=== PATIENT | female | born 1955 | race Caucasian/White ===

== ENCOUNTER 2022-01-28 09:34 | Outpatient (CLI) | payer MEDICARE, BC, SELFPAY | END 2022-01-28 09:35 | disposition home or self-care (01) | LOC: LKVREF 02-02 13:34 | PROVIDERS: PCP Family Medicine; Visit Provider Nurse Practitioner Family | DX: R35.89 Other polyuria (principal); N30.90 Cystitis, unspecified without hematuria | CPT/HCPCS: 87086; 87186 ==

== ENCOUNTER 2022-04-20 09:18 | Outpatient (CLI) | payer MEDICARE, BC, SELFPAY ==
[2022-04-20 12:37] LABS: Chloride* 105 mmol/L (96-114); Sodium* 138 mmol/L (135-149)
[2022-04-20 12:38] LABS: Potassium* 4.5 mmol/L (3.6-5.1)
[2022-04-20 12:40] LABS: Carbon Dioxide* 26 mmol/L (20-32); Creatinine* 0.8 mg/dL (0.5-1.5); Estimated Glomerular Filt Rate 81 ml/min
[2022-04-20 12:41] LABS: Blood Urea Nitrogen* 13 mg/dL (7-30); Calcium* 9.5 mg/dL (8.4-10.6); Glucose* 82 mg/dL (60-115)
== END 2022-04-20 09:19 | disposition home or self-care (01) ==
LOC: LONREF 09:21
PROVIDERS: PCP Family Medicine; Visit Provider Family Medicine
DX: Z01.818 Encounter for other preprocedural examination (principal); E78.5 Hyperlipidemia, unspecified; E03.9 Hypothyroidism, unspecified; M85.80 Other specified disorders of bone density and structure, unspecified site; M17.12 Unilateral primary osteoarthritis, left knee; R30.0 Dysuria
CPT/HCPCS: 80048; 87086; 87186

== ENCOUNTER 2022-05-23 12:27 | Outpatient (CLI) | payer MEDICARE, BC, SELFPAY | END 2022-05-23 12:28 | disposition home or self-care (01) | LOC: LKVREF 05-24 15:10 | PROVIDERS: PCP Family Medicine; Visit Provider Nurse Practitioner Family | DX: R30.0 Dysuria (principal); N30.01 Acute cystitis with hematuria | CPT/HCPCS: 87086; 87186 ==

== ENCOUNTER 2022-12-07 12:56 | Outpatient (CLI) | payer MEDICARE, BC, SELFPAY ==
--- NOTE | 2022-12-07 13:20 | CRLHL7_ITS ---
For Patients: As a result of the Century Cures Act, medical imaging exams and procedure reports are released immediately into your electronic medical record. You may view this report before your referring provider. If you have questions, please contact your health care provider. BILATERAL SCREENING MAMMOGRAM WITH COMPUTER-AIDED DETECTION AND TOMOSYNTHESIS TECHNIQUE: CC, MLO and Implant displaced views were obtained. These mammographic images have been obtained using full-field digital technique. These mammographic images were interpreted with the benefit of computer-aided detection. Breast Tomosynthesis was used in this interpretation. COMPARISON FILM: 10/17/21, 08/09/20, 03/26/19. FINDINGS: The breasts are extremely dense, which lowers the sensitivity of mammography IMPRESSION: There is no radiographic evidence for malignancy. ASSESSMENT: BI-RADS Category 2: Benign RECOMMENDATION: Routine screening mammogram in 1 year. A lay language report of this examination will be provided to the patient. Manish Hummel M.D. Diagnostic Radiologist [email or web address] FRANCO/[email or web address] / be/Dictated by: Manish Hummel MD @ 12/10/2022 8:35:00 AM (Electronically Signed)
== END 2022-12-07 12:57 | disposition home or self-care (01) ==
PROVIDERS: PCP Family Medicine; Visit Provider Family Medicine
DX: Z12.31 Encounter for screening mammogram for malignant neoplasm of breast (principal); R92.2 Inconclusive mammogram
CPT/HCPCS: 77063; 77067

== ENCOUNTER 2022-12-14 14:49 | Outpatient (CLI) | payer MEDICARE, BC, SELFPAY | END 2022-12-14 14:50 | disposition home or self-care (01) | LOC: NFLDREF 12-16 09:23 | PROVIDERS: PCP Family Medicine; Referring Provider Family Medicine; Visit Provider Nurse Practitioner Family | DX: N39.0 Urinary tract infection, site not specified (principal) | CPT/HCPCS: 87086; 87186 ==

== ENCOUNTER 2023-10-01 09:49 | Outpatient (CLI) | payer MEDICARE, BC, SELFPAY ==
--- OUTSIDE RECORDS SUMMARY | 2023-10-01 09:54 | XMS_ITS | Clinical Summary ---
Author Organization [facility] Address [address], [place] [address] Care Team Providers Care Mobile Developer Name Role Phone Yecenia Calvert Primary Care Provider [phone] Source Comments You are receiving this document as you are listed as the primary care provider,follow-up provider, or the patient has been referred to you for consultation.This is in compliance with the Medicare and[facility] EHR Incentive Program,which states Providers who transition their patient to another setting of careor provider of care or refers their patient to another provider of care shouldprovide summary care record for each transition of care or referral. [employer] Allergies No known active allergies Medications Medication Sig Dispensed Refills Start Date End Date Status levothyroxine (AKA SYNTHROID) 25 MCG tablet Take 25 mcg by mouth daily (every 24 hours). 09/11/2015 Active Immunizations Name Administration Dates Next Due Td 10/31/1999 Varicella 06/17/1998(Deferred: Immune by Jesus corley) Social History Tobacco Use Types Packs/Day Years Used Date Smoking Tobacco: Never Sex and Gender Information Value Date Recorded Sex Assigned at Not on file Gender Identity Not on file Sexual Orientation Not on file Last Filed Vital Signs Vital Sign Reading Time Taken Comments Blood Pressure 128/64 09/11/2015 8:42 AM CDT Pulse 70 09/11/2015 8:42 AM CDT Temperature 36.4 ??C (97.5 ??F) 09/11/2015 8:42 AM CD T Respiratory Rate 16 09/11/2015 8:42 AM CDT Oxygen Saturation 100% 09/11/2015 8:42 AM CDT Inhaled Oxygen Concentration - - Weight - - Height - - Body Mass Index - - Plan of Treatment Health Maintenance Due Date Last Done Comments Colon Cancer Screening Plan Due 1954 Hep C Screening (Preventive Services) 1955 Cholesterol 1999 DTaP/Tdap/Td (1 - Tdap) 11/01/1999 10/31/1999 Mammogram 03/05/2001 03/05/2000, 02/05, 08/26/1998, Additional history exists Adult Preventive Visit 10/09/2002 2, 10/17/2000, 10/31/1999, Additional history exists Zoster/Shingles (1 of 2) 2004 Pneumococcal 65+ Yrs (1 - PCV) 2019 COVID-19 Vaccine (1 - season) 2023 Influenza (Season Ended) 2024 HepA Aged Out No longer eligi ble based on patient's age to complete this topic HepB Aged Out No longer eligi ble based on patient's age to complete this topic Hib Aged Out No longer eligi ble based on patient's age to complete this topic IPV (Polio) Aged Out No longer eligi ble based on patient's age to complete this topic MCV4 Aged Out No longer eligi ble based on patient's age to complete this topic Procedures Procedure Name Priority Date/Time Associated Diagnosis Comments BREAST IMAGING 03/05/2000 from Last 3 Months or Most Recently Relevant to Health Maintenance Results * BREAST IMAGING (03/05/2000) Anatomical Region Laterality Modality Breast Other Narrative Transcriptions Kodak Turner - 03/05/2000 12:00 AM CSTCLINICAL DATA: Screen INTERPRETATION: BILATERAL MAMMOGRAM 03/05/2000: Exam is compared to 08/26/98. Bilateral breast implants are again noted. Dense breast parenchyma with benign appearing calcifications are again noted. IMPRESSION: There is no evidence of malignancy. ACR BIRADS CATEGORY 1 - NEGATIVE MAMMOGRAM Kodak Turner MD cc: Radiology Sheela Caraballo MD Sheela Caraballo MD RAD_BI from Last 3 Months or Most Recently Relevant to Health Maintenance Care Teams Mobile Developer Relationship Specialty Start Date End Date Yecenia Calvert [address] [place] [address] PCP - General 08/14/01
--- OUTSIDE RECORDS SUMMARY | 2023-10-01 09:54 | XMS_ITS | Clinical Summary ---
Author Organization [employer] [facility] Address [place], [place] [address] Care Team Providers Care Electronic Instrument Trades Worker Name Role Phone Jared Villafana MD Primary Care Provider [phone] Allergies No known active allergies Medications Medication Sig Dispensed Refills Start Date End Date Status estradioL (ESTRACE) 0.01% (0.1 mg/g) vaginal cream 01/14/2023 Active levothyroxine (SYNTHROID) 88 mcg tablet 02/25/2023 Active simvastatin (ZOCOR) 20 mg tablet 01/04/2023 Active Social History Tobacco Use Types Packs/Day Years Used Date Smoking Tobacco: Never Assessed Sex and Gender Information Value Date Recorded Sex Assigned at Not on file Gender Identity Not on file Sexual Orientation Not on file Plan of Treatment Health Maintenance Due Date Last Done Comments Tdap 1965 Depression screening for age 12+ 1966 BMI (ht and wt on same day) for age 18+ 1972 Hepatitis C screening for ag e 18-79 1972 Tetanus booster 1974 Colonoscopy through age 75 1999 Lipids for age 45-75 1999 Mammogram for age 45-75 1999 Zoster (shingles) series for age 50+ (1 of 2) 2004 DEXA/DXA scan for age 65+ 2019 Medicare Wellness for age 65+ 2019 Pneumococcal series for age 65+ (1 of 1 - PCV) 2019 COVID-19 vaccine series (6 - 2022-24 season) 2023 01/11/2023, 12/21/2021, 02/15/2021, Additional history exists Influenza for age 65+ 01/05/2024 Care Teams Electronic Instrument Trades Worker Relationship Specialty Start Date End Date Jared Villafana MD PCP - General Family Practice 11/22/21
--- OUTSIDE RECORDS SUMMARY | 2023-10-01 09:55 | XMS_ITS | Encounter Summary ---
Author Organization [facility] Address [address] [place] [address] Care Team Providers Care Leak Operator Paraffin Plant Name Role Phone Yecenia Calvert Primary Care Provider [phone] Encounter Details Date Type Department Care Team (Latest Contact Info) Description 08/16/1998 Orders Only Destinee Kuhn Social History Tobacco Use Types Packs/Day Years Used Date Smoking Tobacco: Never Assessed Sex and Gender Information Value Date Recorded Sex Assigned at Not on file Gender Identity Not on file Sexual Orientation Not on file documented as of this encounter Plan of Treatment Not on file documented as of this encounter Visit Diagnoses Not on filedocumented in this encounter Care Teams Leak Operator Paraffin Plant Relationship Specialty Start Date End Date Yecenia Calvert [address] [place] [address] PCP - General 08/14/01 documented as of this encounter
== END 2023-10-01 09:50 | disposition home or self-care (01) ==
PROVIDERS: PCP Family Medicine; Visit Provider Family Medicine
DX: E78.00 Pure hypercholesterolemia, unspecified (principal); Z13.1 Encounter for screening for diabetes mellitus; E03.9 Hypothyroidism, unspecified
CPT/HCPCS: 80048; 80061; 84443

== ENCOUNTER 2023-12-17 12:39 | Outpatient (CLI) | payer MEDICARE, BC, SELFPAY ==
--- OUTSIDE RECORDS SUMMARY | 2023-12-17 12:42 | XMS_ITS | Clinical Summary ---
Author Organization [employer] [facility] Address [place], [place] [address] Care Team Providers Care Assembler Camper Name Role Phone Jared Villafana MD Primary Care Provider [phone] Allergies No known active allergies Medications Medication [...] Influenza for age 65+ 01/05/2024 Care Teams Assembler Camper Relationship Specialty Start Date End Date Jared Villafana MD PCP - General Family Practice 11/22/21
--- OUTSIDE RECORDS SUMMARY | 2023-12-17 12:42 | XMS_ITS | Continuity of Care Document ---
Author Organization [place] [facility] Address [address] [place] [address] [address] [place] [address] Care Team Providers Care Urogynaecologist Name Role Phone BIANKA EID Primary Care Provider Assessment No assessment recorded. Plan of Treatment Reminders Order Date Submit Date Provider Last Modified By Organization Details Last Modified Time Details Appointments None record ed. Lab None record ed. Referral None record ed. Procedures None record ed. Surgeries None record ed. Imaging None record ed. Medication Orders None record ed. Patient TargetsNo targets recorded. Patient Instructions Encounter Date Encounter Id Patient Instructions Last Modified By Organization Details Last Modified Time 10/22/2023 [id number] Recurrent UTIs: -Continue use of vaginal estrogen cream in prevention of UTIs. Apply fingerful amount to entry part of vagina two to three times per week at night. Recommend continuing indefinitely. -Continue cranberry supplement and probiotic. Discussed D-mannose. -Adequate fluids. -Consider anatomic evaluation and cystoscopy if recurrent UTIs remain an issue with conservative management. Follow up in one year, sooner if issues [email or web address] Not available 10/22/2023 11:10:13 Reason for Referral None Reported. Procedures Surgical History Date Name Laterality Status Provider Name and Address Organization Details Recorded Time 10/22/19 24 COMPLEX VISIT completed BRISA SPEARS [address] [facility],[address], [place], [address], [facility] 10/20/2023 21:51:12 09/14/19 15 Diagnostic colonoscopy completed Not Available Health Note 09/08/2022 12:29:31 Imaging Results None recorded. Procedure Notes None recorded. Medical Equipment None Reported. Allergies No known drug allergies Medications Name Sig Start Date Stop Date Status Note LastModified by Organization Details LastModified Time celecoxib 200 mg capsule 09/12 completed HN: Patient reports no longer taking Not Available Not Available Not Available prednisone 10 mg tablet TAKE 3 TABS DAILY X3 DAYS,2 TABS DAILY X3 DAYS,1 TAB DAILY 10/21 completed Not Available Not Available Not Available ciprofloxa brenda 500 mg tablet TAKE 1 TABLET BY MOUTH TWICE A DAY FOR 5 DAYS 10/21 completed Not Available Not Available Not Available sulfametho xazole 800 mg-trimeth oprim 160 mg tablet 09/12 completed HN: Patient reports no longer taking Not Available Not Available Not Available meloxicam 7.5 mg tablet 09/12 completed HN: Patient reports no longer taking Not Available Not Available Not Available levothyrox ine 88 mcg tablet active Not Available Not Available Not Available simvastati n 20 mg tablet active Not Available Not Available Not Available estradiol 0.01% (0.1 mg/gram) vaginal cream Apply pea size amount (0.5g) to the inside of the vagina three times per week at night active Not Available Not Available No t Available methylpred nisolone 4 mg tablets in a dose pack 09/12 completed HN: Patient reports no longer taking Not Available Not Available Not Available amoxicilli n 875 mg-potassi um clavulanat e 125 mg tablet TAKE 1 TABLET BY MOUTH EVERY 12 HOURS FOR 5 DAYS 10/21 completed Not Available Not Available Not Available oxycodone 5 mg tablet 09/12 completed HN: Patient reports no longer taking Not Available Not Available Not Available hydroxyzin e pamoate 25 mg capsule 09/12 completed HN: Patient reports no longer taking Not Available Not Available Not Available nitrofuran toin monohydrat e/macrocry stals 100 mg capsule 09/12 completed HN: Patient reports no longer taking Not Available Not Available Not Available Vitals Date Recorded Body weight Provider Name an d Address Organization Details Last Updated DateTime 10/22/2023 30688.93 g Susie Isidro [place] [facility] 10/22/2023 10:34:24 Social History Question Answer Notes LastModified by Organizat ion Details LastModified Time Tobacco Smoking Status Never Smoker Not Available Health Note 09/08/2022 12:29:31 What Is Your Level Of Alcohol Consumption? Moderate 6-7 Drinks Per Week. Information not available 10/22/2023 What Is Your Level Of Caffeine Consumption? Moderate 2-3 Cups Daily. Information not available 10/22/2023 How Much Tobacco Do You Chew? None [email or web address] Information not available 09/08/2022 Are You Currently Employed? No Information not available 10/22/2023 Do You Or Have You Ever Used E-cigarettes Or Vape? Never Used Electronic Cigarettes [email or web address] Information not available 09/08/2022 Ethnicity Not /Latin o Information not available 10/22/2023 Preferred Language Azeri Information not available 10/22/2023 Number Of Pregnancies 3 [email or web address] Information not available 09/08/2022 Number Of Vaginal Deliveries 3 [email or web address] Information not available 09/08/2022 Number Of Caesarean Sections 0 [email or web address] Information not available 09/08/2022 Could You Be ? No [email or web address] Information not available 09/08/2022 What Was The Date Of Your Most Recent Tobacco Screening? 10/22/2023 Information not available 10/22/2023 Have You Ever Been Counseled For Unhealthy Alcohol Use? No Information not available 10/22/2023 What Is Your Relationship Status? [email or web address] Information not available 09/08/2022 Are You Sexually Active? Yes [email or web address] Information not available 09/08/2022 Do You Or Have You Ever Used Smokeless Tobacco? Never Used Smokeless Tobacco [email or web address] Information not available 09/08/2022 Do You Use Any Illicit Or Recreational Drugs? No [email or web address] Information not available 09/08/2022 Has Tobacco Cessation Counseling Been Provided? No Information not available 10/22/2023 Do You Or Have You Ever Used Any Other Forms Of Tobacco Or Nicotine? No Information not available 10/22/2023 Sex: Unknown Functional Status None recorded. Mental Status None recorded. Family History Nothing Reported. Medical History Condition Response Sexually Transmitted Infection N Diabetes N Bleeding Disorder N High Blood Pressure N Kidney Stones N Cancer N Lung Disease N Depression N High Cholesterol N GERD/Acid Reflux N Heart Disease N Gynecological HistoryNo gynecological history recorded. Obstetrics History GPAL:G 0 P 0 0 0 0 Immunizations Vaccine Type Date Status Provider Name and Address Organization Details Recorded Time SARS-COV-2 (COVID-19) vaccine, UNSPECIFIED 12/23/2021 completed Emeli kim, [facility] 09/12/2022 12:00:35 influenza, unspecified formulation 01/18/2022 completed Emeli kim, [facility] 09/12/2022 12:00:35 pneumococcal polysaccharide PPV23 05/06/2018 [facility] 12:00:35 Pneumococcal conjugate PCV 13 05/06/2017 [facility]2022 12:00:35 Influenza, MDCK, quadrivalent, PF 01/28/2019 [facility]2022 12:00:35 zoster recombinant 10/06/2018 [facility]2022 12:00:35 zoster recombinant 12/08/2018 [facility]2022 12:00:35 Influenza, high-dose, quadrivalent, PF 01/19/2020 [facility]22 12:00:35 Influenza, high-dose, quadrivalent, PF 01/18/2022 [facility]22 12:00:35 Influenza, high-dose, quadrivalent, PF 02/02/2021 [facility]2022 12:00:35 COVID-19, mRNA, LNP-S, PF, 100 mcg/0.5mL dose or 50 mcg/0.25mL dose 12/21/2021 [facility]2022 12:00:35 COVID-19, mRNA, LNP-S, PF, 30 mcg/0.3 mL dose 06/29/2020 [facility]/2022 12:00:35 COVID-19, mRNA, LNP-S, PF, 30 mcg/0.3 mL dose 07/27/2020 completed Emeli kim [facility] 09/12/2022 12:00:35 COVID-19, mRNA, LNP-S, PF, 30 mcg/0.3 mL dose 02/15/2021 completed Emeli kim [facility] 09/12/2022 12:00:35 pneumococcal polysaccharide PPV23 07/07/2019 completed Emeli kim [facility] 09/12/2022 12:00:35 Td (adult), 5 Lf tetanus toxoid, preservative free, adsorbed 11/09/2015 completed Emeli kim [facility] 09/12/2022 12:00:35 Influenza, split virus, quadrivalent, PF 02/11/2018 completed Emeli kim [facility] 09/12/2022 12:00:35 Past Encounters Encounter ID Performer Location Encounter Start Date Encounter Closed Date Diagnosis/Indication Diagnosis SNOMED-CT Code [id number] BRISA SPEARS [address] [address] 10/22/2023 10:09:26 10/23/2023 10:31:47 Recurrent urinary tract infection [id number] Atrophic vaginitis 83949 000 Health Concerns Section Related Observation LastModified by Organization Detai ls LastModified Time None Recorded Concern Status LastModified by Organization Details LastModified Time None Recorded Payers Encounter Date Sequence Insurance Name Policy Number Policy Wells Covered Member ID Wells Member ID Guarantor Name 10/22/2023 1 [place]: [employer] Araceli Arauz [id number] Araceli Arauz 10/22/2023 2 [place] 113 Araceli Arauz [id number] Araceli Arauz Notes Date Note Type Note Provider Name and Address Organization Details Recorded Time 10/22/2023 text/html HPI Notes: Follo w up for recurrent UTI's. seen by Dr. Jackson on 06/15/22. Started on vaginal estrogen cream. Estrogen: once every 4-5 days Cranberry supplement: yes Probiotic: yes Fluids: 50oz water per day Constipation: none Infections since last visit: one - last November Prior urine testin05/23/22: 70-80k ESBL (S cefoxitin, cipro, ertapenem, levaquin, macrobid, pip/tazo) BRISA SPEARS [address] [place] [address],[address], [address], [facility] 10/22/2023 11:10:25 OBGyn Episode No OBEpisode recorded.
--- OUTSIDE RECORDS SUMMARY | 2023-12-17 12:42 | XMS_ITS | Clinical Summary ---
Author Organization [facility] Address [address], [place] [address] Care Team Providers Care Research And Development Specialist Name Role Phone Yecenia Calvert Primary Care Provider [phone] Source Comments You are receiving this document as you are listed as the primary care provider,follow-up provider, or the patient has been referred to you for consultation.This is in compliance with the Medicare and[facility] E[facility] Incentive Program,which states Providers who transition their patient to another setting of careor provider of care or refers their patient to another provider of care shouldprovide summary care record for each transition of care or referral. [employer] Allergies No known active allergies Medications Medication [...] COVID-19 Vaccine (1 - season) 2023 Influenza (#1) 2024 HepA Aged Out No longer eligi [...] Recently Relevant to Health Maintenance Care Teams Research And Development Specialist Relationship Specialty Start Date End Date Yecenia Calvert [address] [place] [address] PCP - General 08/14/01
--- OUTSIDE RECORDS SUMMARY | 2023-12-17 12:42 | XMS_ITS | Encounter Summary ---
Author Organization [facility] Address [address] [place] [address] Care Team Providers Care Seat Mender Name Role Phone Yecenia Calvert Primary Care Provider [phone] Encounter Details Date Type Department Care Team [...] on filedocumented in this encounter Care Teams Seat Mender Relationship Specialty Start Date End Date Yecenia Calvert [address] [place] [address] PCP - General 08/14/01 documented as of this encounter
--- NOTE | 2023-12-17 13:20 | CRLHL7_ITS ---
For Patients: As a result of the Century Cures Act, medical imaging exams and procedure reports are released immediately into your electronic medical record. You may view this report before your referring provider. If you have questions, please contact your health care provider. BILATERAL SCREENING MAMMOGRAM WITH COMPUTER-AIDED DETECTION AND TOMOSYNTHESIS TECHNIQUE: CC, MLO and Implant displaced views were obtained. These mammographic images have been obtained using full-field digital technique. These mammographic images were interpreted with the benefit of computer-aided detection. Breast Tomosynthesis was used in this interpretation. COMPARISON FILM: 12/07/22, 10/17/21, 08/09/20. FINDINGS: The breasts are extremely dense, which lowers the sensitivity of mammography IMPRESSION: There is no radiographic evidence for malignancy. ASSESSMENT: BI-RADS Category 2: Benign RECOMMENDATION: Routine screening mammogram in 1 year. A lay language report of this examination will be provided to the patient. Manish Hummel M.D. Diagnostic Radiologist [email or web address] [email or web address]/[email or web address] Transcribed: 6:16 p.myra singh/Dictated by: Manish Hummel MD @ 12/19/2023 8:53:00 AM (Electronically Signed)
== END 2023-12-17 12:40 | disposition home or self-care (01) ==
LOC: MAMMO 12:40
PROVIDERS: PCP Family Medicine; Visit Provider Family Medicine
DX: Z12.31 Encounter for screening mammogram for malignant neoplasm of breast (principal); R92.2 Inconclusive mammogram
CPT/HCPCS: 77063; 77067

== ENCOUNTER 2024-10-02 11:02 | Outpatient (CLI) | payer MEDICARE, BC, SELFPAY | END 2024-10-02 11:03 | disposition home or self-care (01) | PROVIDERS: PCP Family Medicine; Visit Provider Family Medicine | DX: E78.00 Pure hypercholesterolemia, unspecified (principal); E03.9 Hypothyroidism, unspecified | CPT/HCPCS: 80048; 80061; 84439; 84443 ==

== ENCOUNTER 2025-01-15 12:42 | Outpatient (CLI) | payer MEDICARE, BC, SELFPAY ==
--- NOTE | 2025-01-15 13:00 | CRLHL7_ITS ---
For Patients: As a result of the Century Cures Act, medical imaging exams and procedure reports are released immediately into your electronic medical record. You may view this report before your referring provider. If you have questions, please contact your health care provider. INDICATION: BILATERAL SCREENING MAMMOGRAM W/IMPLANTS, ASYMPTOMATIC 69 Y/O FEMALE COMPARISON: 12/17/2023, 12/07/2022, 10/17/2021 TECHNIQUE: Digital mammogram in CC and MLO projections including computer-aided detection (CAD) and tomosynthesis. BREAST COMPOSITION: The breasts are extremely dense, which lowers the sensitivity of mammography. FINDINGS: No suspicious findings. ASSESSMENT: BI-RADS 2 Benign RECOMMENDATION: Annual screening mammogram. A lay language report of this examination will be provided to the patient. Dictated by: Manish Hummel MD @ 01/18/2025 11:43:52 (Electronically Signed)
== END 2025-01-15 12:43 | disposition home or self-care (01) ==
LOC: MAMMO 12:43
PROVIDERS: PCP Family Medicine; Visit Provider Family Medicine
DX: Z12.31 Encounter for screening mammogram for malignant neoplasm of breast (principal); R92.343 Mammographic extreme density, bilateral breasts
CPT/HCPCS: 77063; 77067